=== PATIENT | male | born 1990 | race Caucasian/White ===

== ENCOUNTER 2018-04-25 19:52 | Emergency (ER) | payer SELFPAY ==
[~2018-04-25] VITALS: Ht 170.2 cm; Wt 59.9 kg
[2018-04-25] MEDS ORDERED: OMEPRAZOLE10 M1 ORAL (20:10)
--- NOTE | 2018-04-25 20:15 | NUR ---
ED Nurse Note: Patient walk in c/o dog bite to right ankle. Patient states he does not know the boat tender of the dog. Pt is AO x 4times, VSS, on room air no distress. CARLD seen Pt at bedside.
[2018-04-25 20:17] VITALS: BP 128/72
[2018-04-25] MEDS ORDERED: AUGMENTIN 875-1 EAC1 ORAL (20:17)
[2018-04-25] MEDS ORDERED: Bacitracin Oint UD TOPIC ONE (20:45)
[2018-04-25] MEDS ORDERED: Rabies Vaccine IM ONE (20:45)
[2018-04-25] MEDS ORDERED: Tetanus/Diptheria/Pertussis Vaccine 0.5ml Syr IM ONE (20:45)
[2018-04-25] MEDS ORDERED: RABIES IMMUNE GLOBULIN IM ONE (20:45)
--- NOTE | 2018-04-25 20:48 | Emergency Room Report ---
History of Present Illness General Chief Complaint: Animal Bite Source: Patient Present Illness HPI 28-year-old male presenting with dogbite. Says that it was a dog from a homeless person, the dog also looked very disheveled. [place] previously get vaccinated with rabies in the past. No fever no chills. Tetanus is also not up-to-date. Allergies: Coded Allergies: No Known Allergies (Unverified , 04/25/18) Patient History Past Medical History: see triage record Past Surgical History: none Pertinent Family History: none Reviewed Nursing Documentation: PMH: Agreed; PSxH: Agreed Nursing Documentation-PM Past Medical History: No History, Except For Hx Gastrointestinal Problems: Yes - ulcer Review of Systems All Other Systems: negative except mentioned in HPI Physical Exam Vital Signs Date Time Temp Pulse Resp B/P (MAP) Pulse Ox O2 Delivery O2 Flow Rate FiO2 04/25/18 20:05 98.2 80 16 128/72 97 Room Air Sp02 EP Interpretation: reviewed, normal General Appearance: normal inspection, well appearing, no apparent distress, alert, GCS 15, non-toxic Head: normocephalic, atraumatic Eyes: bilateral eye normal inspection, bilateral eye PERRL, bilateral eye EOMI ENT: normal ENT inspection, normal pharynx, normal voice, moist mucus membranes Neck: normal inspection, full range of motion, supple Respiratory: normal inspection, lungs clear, normal breath sounds, no respiratory distress, no retraction, no wheezing, speaking full sentences, chest symmetrical Cardiovascular #1: normal inspection, regular rate, rhythm, normal capillary refill Cardiovascular #2: 2+ radial (R), 2+ radial (L) Gastrointestinal: normal inspection, non tender, soft, non-distended, no guarding Musculoskeletal: other - Dog bite orourke noted to the right ankle, open wound with out any active bleeding, no surrounding erythema or purulent drainage no edema Neurologic: normal inspection, alert, oriented x3, responsive, motor strength/ tone normal, sensory intact, normal gait, speech normal Psychiatric: normal inspection, judgement/insight normal, memory normal Skin: normal inspection, normal color, no rash, warm/dry, well hydrated, normal turgor Medical Decision Making Diagnostic Impression: Primary Impression: Dog bite of ankle ER Course 28-year-old male with right ankle dogbite DDX: Dog unknown if it's vaccinated, was from a homeless person Plan: Tetanus, bacitracin, will discharge with Augmentin, rabies vaccine ER course: Patient has remained stable during ED stay. given rabies vaccines Disposition: Patient is to be discharged to home. Prescriptions given with Augmentin. He is told he must come back on days 3 7 and 14 for repeat vaccination for about for rabies Please note that this Emergency Department Report was dictated using &[employer] banking representative technology software, occasionally this can lead to erroneous entry secondary to interpretation by the dictation equipment Last Vital Signs Date Time Temp Pulse Resp B/P (MAP) Pulse Ox O2 Delivery O2 Flow Rate FiO2 04/25/18 20:17 98.2 82 16 128/72 97 Room Air Disposition: HOME, SELF-CARE Condition: Stable Scripts Amoxicillin/Potassium Clav 875-125* (AUGMENTIN 875-125 TABLET*) 1 Each Tablet 1 TAB ORAL TWICE A DAY for 7 Days, #14 TAB Prov: Mary Beth Hanks M.D. 04/25/18 Referrals: NOT CHOSEN [facility]/,REFERRING (PCP) Patient Instructions: Animal Bite Mary Beth Hanks M.D. Apr 25, 2018 20:48
--- NOTE | 2018-04-25 21:30 | NUR ---
ED Nurse Note: Cleaned the wound with NS and applied meds, cover with dressing.
--- NOTE | 2018-04-25 21:49 | NUR ---
ED Nurse Note: Pt cleared DC by ERMD. Pt is AO x 4times, VSS, on room air no distress. ID band and removed. Belongings given to Pt. DC and meds instructions given to Pt, Pt understood well. Pt walked out unit with steady gait with family.
[2018-04-25 21:50] VITALS: BP 130/80
[2018-04-25 21:51] VITALS: BP 130/80
== END 2018-04-25 21:52 | disposition home or self-care (01) ==
LOC: EMR 20:18
DX: S91.051A Open bite, right ankle, initial encounter (principal); W54.0XXA Bitten by dog, initial encounter; Y92.89 Other specified places as the place of occurrence of the external cause; Z23 Encounter for immunization
CPT/HCPCS: 90375; 90471; 90715; 99283; G0009

== ENCOUNTER 2018-04-28 17:02 | Emergency (ER) | payer OTHER ==
[~2018-04-28] VITALS: Ht 170.2 cm; Wt 59.9 kg
[~2018-04-28 17:02] MED LIST: AUGMENTIN 875-1 EAC1 ORAL; OMEPRAZOLE10 M1 ORAL
[2018-04-28 17:13] VITALS: BP 120/68
--- NOTE | 2018-04-28 17:16 | NUR ---
ED Nurse Note: pt is returned for 2nd vaccination per dr. Hanks's instruction from previous visit on . pt had a dog bite and received first vaccination here and came back for 2nd vaccination. pt aao x 4, skin intact, calm and cooperative, dog bite site is clean and intact, no s/s of infection noted.
[2018-04-28] MEDS ORDERED: Rabies Vaccine IM ONE ×2 (17:30→19:00)
--- NOTE | 2018-04-28 17:30 | NUR ---
ED Nurse Note: medication will be prepared and delievered by pharmacy.
--- NOTE | 2018-04-28 17:34 | Emergency Room Report ---
History of Present Illness General Chief Complaint: Animal Bite Source: Patient Present Illness HPI 28-year-old male presents to the emergency department complaining of need for second round of rabies vaccination. Patient was seen here in the emergency department treated for a dog bite 3 days ago and received the first of the series. Patient also received immunoglobulin at that visit. Patient denies pain at this time denies erythema or warmth. Patient is now up-to-date with tetanus vaccination. Allergies: Coded Allergies: No Known Allergies (Unverified , 04/25/18) Patient History Past Medical History: see triage record Past Surgical History: none Pertinent Family History: none Immunizations: UTD Reviewed Nursing Documentation: PMH: Agreed; PSxH: Agreed Nursing Documentation-PMH Past Medical History: No Stated History Hx Gastrointestinal Problems: Yes - ulcer Review of Systems All Other Systems: negative except mentioned in HPI Physical Exam Vital Signs Date Time Temp Pulse Resp B/P (MAP) Pulse Ox O2 Delivery O2 Flow Rate FiO2 04/28/18 17:08 98.2 79 18 120/68 95 Room Air Sp02 EP Interpretation: reviewed, normal General Appearance: no apparent distress, alert, GCS 15, non-toxic Head: normocephalic, atraumatic Eyes: bilateral eye normal inspection, bilateral eye PERRL ENT: hearing grossly normal, normal voice Neck: full range of motion Respiratory: lungs clear, normal breath sounds, speaking full sentences Cardiovascular #1: regular rate, rhythm Musculoskeletal: back normal, gait/station normal, normal range of motion, non- tender Neurologic: alert, oriented x3, responsive, motor strength/tone normal, sensory intact, speech normal, grossly normal Psychiatric: judgement/insight normal Skin: normal color, no rash, warm/dry, well hydrated, other - healed small bite wound on lateral right ankle, no erythema or warmth, Lymphatic: no adenopathy Medical Decision Making PA Attestation Dr. Milan is my supervising Physician whom patient management has been discussed with. Diagnostic Impression: Primary Impression: Need for rabies vaccination ER Course Pt. presents to the ED c/o dog bite 4 days ago, tetanus not up to date, rabies on animal is UTD Ddx considered but are not limited to Cellulitis, rabies, fracture, neurovascular compromise of extremity. Vital signs: are WNL, pt. is afebrile H&PE are most consistent with dog bite, mild infection. ORDERS: none required at this time, the diagnosis is clinical ED INTERVENTIONS: Second Rabies vaccination is administered. --Dept. Public Health were contacted and recommended pt. to follow up with PCP. also given information to report the bite, given pt. name and address. DISCHARGE: At this time pt. is stable for d/c to home. Will provide printed patient care instructions. Care plan and follow up instructions have been discussed with the patient prior to discharge. * Continue Augmentin TID x 7 days. Last Vital Signs Date Time Temp Pulse Resp B/P (MAP) Pulse Ox O2 Delivery O2 Flow Rate FiO2 04/28/18 17:13 98.2 77 18 120/68 95 Room Air Disposition: HOME, SELF-CARE Condition: Stable Patient Instructions: Rabies Vaccine suspension for injection Additional Instructions: Take medications as directed. Follow up For your next vaccination on 05/02. --Please review list of primary care clinics, if you do not already have a primary care provider Return sooner to ED if new symptoms occur, or current symptoms become worse. - Please note that this Emergency Department Report was dictated using [employer] brand ambassador technology software, occasionally this can lead to erroneous entry secondary to interpretation by the dictation equipment. Charissa Goldberg Apr 28, 2018 17:34
[2018-04-28 18:58] VITALS: BP 120/68
--- NOTE | 2018-04-28 18:58 | NUR ---
ED Nurse Note: Pt cleared DC by ERPA. Pt is A/Ox4, VSS, DC instruction and prescriptions given, pt verbalized understanding. ID wristband removed. All belongings given to pt. Pt ambulated out of ER with steady gait.
== END 2018-04-28 18:59 | disposition home or self-care (01) ==
LOC: EMR 17:38
DX: Z23 Encounter for immunization (principal); S91.051D Open bite, right ankle, subsequent encounter; W54.0XXD Bitten by dog, subsequent encounter
CPT/HCPCS: 90375; 96372; 99283; G0009

== ENCOUNTER 2018-05-02 16:03 | Emergency (ER) | payer OTHER ==
[~2018-05-02] VITALS: Ht 167.6 cm; Wt 59.0 kg
--- NOTE | 2018-05-02 16:27 | Emergency Room Report ---
History of Present Illness General Chief Complaint: General Complaint Source: Patient Present Illness HPI 28-year-old male presents to the emergency department for third vaccination of the rabies series. Patient states that he followed up at his primary care provider's office whom referred him back to the emergency department stating that only emergency departments. The rabies vaccination. Patient denies erythema, warmth, bleeding or discharge from the wound. Patient denies fevers or chills. Patient was seen here on 2 previous visits for initially being bitten by a homeless man's dog on the right ankle 1 week ago. He denies headache, paresthesia, confusion or changes in mental status. he is UTD with Tdap vaccinations. Allergies: Coded Allergies: No Known Allergies (Unverified , 04/25/18) Patient History Past Medical History: see triage record Past Surgical History: none Pertinent Family History: none Immunizations: UTD Reviewed Nursing Documentation: PMH: Agreed; PSxH: Agreed Nursing Documentation-PMH Past Medical History: No Stated History Hx Gastrointestinal Problems: Yes - ulcer Physical Exam Vital Signs Date Time Temp Pulse Resp B/P (MAP) Pulse Ox O2 Delivery O2 Flow Rate FiO2 05/02/18 16:12 98.1 83 14 110/76 99 Room Air Medical Decision Making PA Attestation Dr. Tsang is my supervising Physician whom patient management has been discussed with. Diagnostic Impression: Primary Impression: Encounter for medical screening examination ER Course 28-year-old male presents to the emergency department for third vaccination of the rabies series. Patient states that he followed up at his primary care provider's office whom referred him back to the emergency department stating that only emergency departments. The rabies vaccination. Patient denies erythema, warmth, bleeding or discharge from the wound. Patient denies fevers or chills. Patient was seen here on 2 previous visits for initially being bitten by a homeless man's dog on the right ankle 1 week ago. He denies headache, paresthesia, confusion or changes in mental status. he is UTD with Tdap vaccinations. Ddx considered but are not limited to Cellulitis, Medication side effect/ reaction, normal MSE just to name a few. Vital signs: are WNL, pt. is afebrile H&PE are most consistent with recent dog bite of the right lateral ankle with no evidence of infection. ORDERS: none required at this time, the diagnosis is clinical- Pt. has already been evaluated twice with no new changes in his condition. ED INTERVENTIONS: None required at this time. --pt. was given infectious disease referral at last vitis, and he states he did not contact the referral. -D/w pt. that He continues to be of very very low risk to have contracted Rabies. After multiple consults on previous visit It has been unanimously determined that additional rabies vaccinations are not necessary at this time. D/w pt. that medical recommendation is to D/C the series. He is encouraged to follow up with infectious disease if he would like a second opinion. DISCHARGE: At this time pt. is stable for d/c to home. Will provide printed patient care instructions, and any necessary prescriptions. Care plan and follow up instructions have been discussed with the patient prior to discharge. Last Vital Signs Date Time Temp Pulse Resp B/P (MAP) Pulse Ox O2 Delivery O2 Flow Rate FiO2 05/02/18 16:12 98.1 83 14 110/76 99 Room Air Disposition: HOME, SELF-CARE Condition: Stable Patient Instructions: Medical Screening Exam Additional Instructions: Take medications as directed. Follow up with a Primary Care Provider in 3-5 days, even if your symptoms have resolved. --Please review list of primary care clinics that was given to you at your last visit ( if needed I can give you another copy). Return sooner to ED if new symptoms occur, or current symptoms become worse. - Please note that this Emergency Department Report was dictated using [employer] shaving and splitting technology software, occasionally this can lead to erroneous entry secondary to interpretation by the dictation equipment. Charissa Goldberg May 02, 2018 16:27
--- NOTE | 2018-05-02 16:29 | NUR ---
ED Nurse Note: Pt was here on 04/28/18, here today for the next dose of Rabies Vaccination dose. AOx4, VSS. Will cont to monitor.
[2018-05-02 16:46] VITALS: BP 110/76
--- NOTE | 2018-05-02 16:47 | NUR ---
ED Nurse Note: Patient is being discharged from medical care. Awake, alert and oriented x3. ID band were removed. Patient ambulated out with all personal belongings with steady gait.
== END 2018-05-02 16:47 | disposition home or self-care (01) ==
LOC: EMR 16:31
DX: Z23 Encounter for immunization (principal)
CPT/HCPCS: 99281